=== PATIENT | male | born 1985 | race Caucasian/White ===

== ENCOUNTER 2017-01-13 21:23 | Emergency (ER) | payer SELFPAY ==
[2017-01-13 21:34] VITALS: BP 160/99
[2017-01-13] MEDS ORDERED: Ondansetron 4 MG/2 ML SDV IVPUSH ONE (21:37)
[2017-01-13] MEDS ORDERED: Glucagon,Human Recombinant 1 MG Vial IVPUSH ONE (21:37)
[2017-01-13] MEDS ORDERED: Sodium Chloride 0.9% 1,000 ML IV ONE (21:37)
[2017-01-13] MEDS ORDERED: Famotidine 20 MG/2 ML SDV IVPUSH ONE (21:40)
--- NOTE | 2017-01-13 21:40 | EDM.PDOC ---
ED HPI GENERAL MEDICAL PROBLEM - General Chief Complaint: ENT Problem Stated Complaint: SOMETHING STUCK IN THROAT Time Seen by Provider: 01/13/17 21:32 - History of Present Illness INITIAL COMMENTS - FREE TEXT/NARRATIVE: HISTORY AND PHYSICAL: History of present illness: The patient is a 31-year-old male with no pulmonary or GI history and states he has a bicuspid heart valve but no other cardiac history and presents with complaints of feeling like there is a foreign body in his throat that started while he was eating boneless chicken at a restaurant [employer]. He says he will have intermittent problems with food "getting stuck" but usually just drinks fluids and oral move down. He says that this is persistent. He does not feel short of breath and he did not have any choking. He says he had some dry heaves before coming here but does not feel nauseated per se but says that he feels like the acids are moving up from his stomach and irritating him. Patient has never had a true foreign body impaction in the past and has no other GI problems. The patient points to just below his sternal notch as the area he feels the foreign body. He says that the chicken he was eating was boneless. Review of systems: As per history of present illness and below otherwise all systems reviewed and negative. Past medical history: As per history of present illness and as reviewed below otherwise noncontributory. Surgical history: As per history of present illness and as reviewed below otherwise noncontributory. Social history: No reported history of drug or alcohol abuse. Family history: As per history of present illness and as reviewed below otherwise noncontributory. Physical exam: Gen.: Well-developed well-nourished man who is nontoxic and speaking clearly and easily in the ED without hoarseness or stridor. HEENT: Atraumatic, normocephalic, pupils reactive, negative for conjunctival pallor or scleral icterus, mucous membranes moist, throat clear, neck supple, nontender, trachea midline. Lungs: Clear to auscultation, breath sounds equal bilaterally, chest nontender. No worker breathing stridor or wheezing Heart: S1S2, regular rate and rhythm no overt murmurs Abdomen: Soft, nondistended, nontender. NABS Pelvis: Deferred Genitourinary: Deferred. Rectal: Deferred. Extremities: Atraumatic, negative for cords or calf pain. Neurovascular unremarkable. Neuro: Awake, alert, oriented. Cranial nerves II through XII unremarkable. Cerebellum unremarkable. Motor and sensory unremarkable throughout. Exam nonfocal. Diagnostics: 1 view chest x-ray Therapeutics: IV fluids Zofran and glucagon Pepcid 2245: Patient states that he does not feel like he has the foreign body sensation and he would like to try water and Jell-O. I've given him both and will reevaluate. 2315: Patient has tolerated both water and Jell-O and feels back to his baseline. I've advised him I need for follow-up and possible need for endoscopy if these symptoms recur and I will give him the resources to do follow-up Impression: Esophageal spasms/foreign body resolved Definitive disposition and diagnosis as appropriate pending reevaluation and review of above. Upper Epigastric Pain Score (Numeric/FACES): 5 - Related Data Allergies Allergy/AdvReac Type Severity Reaction Status Date / Time Sulfa (Sulfonamide Allergy not sure Verified 05/31/15 19:34 Antibiotics) Home Meds: Home Meds Aspirin/Caffeine [Bc Powder Packet] 1 tab PO ASDIRECTED PRN 01/14/16 [History] Zolpidem [Ambien] 10 mg PO BEDTIME 01/13/17 [History] Past Medical History - Past Health History Medical/Surgical History: Denies Medical/Surgical History HEENT History: Reports: None Cardiovascular History: Reports: None (good exercise tolerance) Respiratory History: Reports: Other (See Below) Gastrointestinal History: Reports: None Genitourinary History: Reports: None Musculoskeletal History: Reports: None Neurological History: Reports: Migraines Psychiatric History: Reports: ADD Endocrine/Metabolic History: Reports: None Hematologic History: Reports: None Immunologic History: Reports: None Oncologic (Cancer) History: Reports: None Dermatologic History: Reports: None - Infectious Disease History Infectious Disease History: Reports: Chicken Pox - Past Surgical History GI Surgical History: Reports: Hernia Repair/Other - History Comment History Comment: etoh "2x a day" Social & Family History - Family History Family Medical History: Noncontributory - Tobacco Use Smoking Status *Q: Current Every Day Smoker Years of Tobacco use: 20 Packs/Tins Daily: 0.1 - Alcohol Use Days Per Week of Alcohol Use: 1 Number of Drinks Per Day: 1 Total Drinks Per Week: 1 - Recreational Drug Use Recreational Drug Use: No Drug Use in Last 12 Months: No ED ROS GENERAL - Review of Systems Review Of Systems: ROS reveals no pertinent complaints other than HPI. ED EXAM, GENERAL - Physical Exam Exam: See Below (See dictation) Course - Vital Signs Last Recorded V/S: Last Vital Signs Temp 36.8 C 01/13/17 21:31 Pulse 104 H 01/13/17 21:31 Resp 20 01/13/17 21:31 BP 160/99 H 01/13/17 21:31 Pulse Ox 100 01/13/17 21:31 - Orders/Labs/Meds Orders: Active Orders 24 hr Category Date Time Status Chest 1V Frontal [CR] Stat Exams 01/13/17 21:37 Taken Meds: Medications Discontinued Medications Generic Name Dose Route Start Last Admin Trade Name Rigo PRN Reason Stop Dose Admin Famotidine 20 mg 01/13/17 21:40 01/13/17 21:58 Pepcid IVPUSH 01/13/17 21:41 20 mg ONETIME ONE Administration Glucagon 1 mg 01/13/17 21:37 01/13/17 21:59 Glucagen IVPUSH 01/13/17 21:38 1 mg ONETIME ONE Administration Sodium Chloride 1,000 mls @ 999 mls/hr 01/13/17 21:37 01/13/17 21:58 Normal Saline IV 01/13/17 22:37 999 mls/hr STAT ONE Administration Ondansetron HCl 4 mg 01/13/17 21:37 01/13/17 21:59 Zofran IVPUSH 01/13/17 21:38 4 mg ONETIME ONE Administration Departure - Departure Time of Disposition: 23:17 Disposition: Home, Self-Care 01 Condition: Good Clinical Impression: Esophageal spasm Esophageal foreign body Qualifiers: Encounter type: initial encounter Qualified Code(s): T18.108A - Unspecified foreign body in esophagus causing other injury, initial encounter - Discharge Information Referrals: PCP,None [Primary Care Provider] - Forms: ED Department Discharge Additional Instructions: The following information is given to patients seen in the emergency department who are being discharged to home. This information is to outline your options for follow-up care. We provide all patients seen in our emergency department with a follow-up referral. The need for follow-up, as well as the timing and circumstances, are variable depending upon the specifics of your emergency department visit. If you don't have a primary care physician on staff, we will provide you with a referral. We always advise you to contact your personal physician following an emergency department visit to inform them of the circumstance of the visit and for follow-up with them and/or the need for any referrals to a consulting specialist. The emergency department will also refer you to a specialist when appropriate. This referral assures that you have the opportunity for followup care with a specialist. All of these measure are taken in an effort to provide you with optimal care, which includes your followup. Under all circumstances we always encourage you to contact your private physician who remains a resource for coordinating your care. When calling for followup care, please make the office aware that this follow-up is from your recent emergency room visit. If for any reason you are refused follow-up, please contact the [facility] emergency department at and ask to speak to the emergency department charge nurse. [facility]- [facility] Medicine [facility] [address] [place] [address] [facility] Specialty Care-General Surgery Professional Building [address] [place] [id number] Please try to chew your food better and take smaller bites. Soft diet for the next 24 hours. Please call and follow-up in our clinic and also contacted one of our surgeons for possible endoscopy if symptoms recur or persist. Return to ER as needed as discussed - My Orders Last 24 Hours: My Active Orders 01/13/17 21:37 Chest 1V Frontal [CR] Stat - Assessment/Plan Last 24 Hours: My Active Orders 01/13/17 21:37 Chest 1V Frontal [CR] Stat
--- NOTE | 2017-01-14 10:01 | CR ---
EXAM DATE: 01/13/17 PATIENT'S AGE: 31 Patient: SAMANTHA MOFFETT Facility: [place], [place] Site . Site : 1985 Study: XRay Chest [id number]/12/2017 10:37:17 PM Ordering Physician: Jacoby Fowler Final Report: INDICATION: pain TECHNIQUE: Chest 1 view COMPARISON: May 31, 2015 FINDINGS: Cardiovascular and mediastinum: Heart size and vasculature are normal in caliber and appearance. Mediastinum is within normal limits. Lungs and pleural space: No focal consolidation. No sign of pleural effusion. No pneumothorax. Bones and soft tissues: No significant findings. IMPRESSION: No acute cardiopulmonary disease Dictated by Bryn Wynn MD @ 01/13/2017 11:12:12 PM Dictated by: Bryn Wynn MD @ 01/13/2017 23:12:36 (Electronic Signature) Report Signed by Proxy. [facility]ITAL[facility]
== END 2017-01-13 23:29 | disposition home or self-care (01) ==
LOC: MW.ED 21:23
DX: T18.128A Food in esophagus causing other injury, initial encounter (principal); K22.4 Dyskinesia of esophagus; F17.210 Nicotine dependence, cigarettes, uncomplicated; Z88.2 Allergy status to sulfonamides
CPT/HCPCS: 71010; 96361; 96374; 96375; 99283; J1610; J2405; J7040